=== PATIENT | male | born 1955 | race Caucasian/White ===

== ENCOUNTER 2023-12-16 03:18 | Emergency (ER) | payer MEDICARE, BC ==
[2023-12-16 03:54] LABS: BASOPHILS ABSOLUTE AUTO 0.05 K/uL (0.00-0.10); BASOPHILS PERCENT AUTO 0.7 % (0.1-1.3); EOSINOPHILS ABSOLUTE AUTO 0.13 K/uL (0.00-0.40); EOSINOPHILS PERCENT AUTO 1.8 % (0.0-5.4); HEMATOCRIT 44.8 % (38.4-49.7); HEMOGLOBIN 16.1 g/dL (12.9-16.9); IMMATURE GRAN PERCENT AUTO 0.3 % (0.0-0.7); LYMPHOCYTES ABSOLUTE AUTO 1.52 K/uL (0.8-3.3); LYMPHOCYTES PERCENT AUTO 20.6 % (11.4-47.7); MEAN CORPUSCULAR HEMOGLOBIN 33.8 pg (31.6-35.5); MEAN CORPUSCULAR HGB CONC 35.9 g/dL (31.6-35.5); MEAN CORPUSCULAR VOLUME 93.9 fL (81.4-99.0); MONOCYTES ABSOLUTE AUTO 1.05 K/uL (0.20-0.90); MONOCYTES PERCENT AUTO 14.2 % (3.3-12.6); NEUTROPHILS ABSOLUTE AUTO 4.61 K/uL (1.0-7.6); NEUTROPHILS PERCENT AUTO 62.4 % (40.0-78.1); PLATELET COUNT,PLT 184 K/uL (130-375); RED BLOOD CELL COUNT 4.77 M/uL (4.14-5.76); WHITE BLOOD CELL COUNT,WBC 7.4 K/uL (3.2-11.0)
[2023-12-16 03:55] LABS: IMMATURE GRAN ABSOLUTE AUTO 0.02 K/uL (0.00-0.23)
[2023-12-16 04:12] LABS: PROTHROMBIN TIME 10.4 sec (9.2-10.6)
[2023-12-16 04:18] LABS: ANION GAP 15.2 mmol/L (5.0-14.0); BLOOD UREA NITROGEN,BUN 21 mg/dL (7-18); CARBON DIOXIDE,CO2 26 mmol/L (21-32); CHLORIDE,CL 99 mmol/L (100-108); CREATININE 1.3 mg/dL (0.8-1.3); ESTIMATED GFR 60 mL/min (>60); GLUCOSE RANDOM 119 mg/dL (74-106); POTASSIUM,K 4.2 mmol/L (3.6-5.2); SODIUM,NA 136 mmol/L (140-148); TROPONIN I HIGH SENSITIVITY 4.4 pg/mL (<=60.3)
[2023-12-16] MEDS: valACYclovir 500 MG Tab PO ONE (04:53)
== END 2023-12-16 05:05 | disposition home or self-care (01) ==
LOC: JP.ED 03:18
DX: B02.9 Zoster without complications (principal); I10 Essential (primary) hypertension; Z90.49 Acquired absence of other specified parts of digestive tract
CPT/HCPCS: 36415; 80048; 84484; 85025; 85610; 99284; A9270; 93010; 99283

== ENCOUNTER → 2023-12-23 | Day surgery (SDC) | payer MEDICARE, BC ==
[~2023-12-23] MED LIST: Midazolam 1 MG/ML 2 ML SDV ONE; Propofol 200 MG/20 ML SDV ONE; fentaNYL 50 MCG/ML SDV ONE
[2023-12-23] MEDS: Lactated Ringers 1,000 ML IV SCH (10:47)
== END ==
LOC: JP.SDS 08:23
PROVIDERS: ATTEND Family Medicine
DX: D12.2 Benign neoplasm of ascending colon (principal); K52.9 Noninfective gastroenteritis and colitis, unspecified; K51.00 Ulcerative (chronic) pancolitis without complications; I10 Essential (primary) hypertension; Z86.010 Personal history of colon polyps
CPT/HCPCS: 00811; 45380; 45381; 45390; 74019; J2250; J2704; J3010; J7120

== ENCOUNTER → 2024-01-23 | Day surgery (SDC) | payer MEDICARE, BC ==
[2024-01-23] MEDS: Sodium Chloride 0.9% 1,000 ML IV SCH (10:07)
[2024-01-23] MEDS: FLU (Fluad Triv) TS24-25 (65UP)/MF59C/PF 45 MCG/0.5 ML Syringe IM ONE (10:08)
== END ==
LOC: JP.SDS 09:26
PROVIDERS: ATTEND Surgery
DX: D12.2 Benign neoplasm of ascending colon (principal); Z23 Encounter for immunization
CPT/HCPCS: 00811; 45390; 88305; 90653; G0008; J2250; J2704; J3010; J7030

== ENCOUNTER 2024-03-20 08:56 | Day surgery (SDC) | payer MEDICARE, BC ==
[~2024-03-20 08:56] MED LIST changes: +Dexamethasone 4 MG/ML SDV ONE; +Glycopyrrolate 0.2 MG/ML 5 ML MDV ONE; +Ketorolac 30 MG/ML SDV ONE; -Midazolam 1 MG/ML 2 ML SDV ONE; +Neostigmine Methylsulfate 10 MG/10 ML MDV ONE; +Ondansetron 4 MG/2 ML SDV ONE; +Rocuronium 50 MG/5 ML Vial ONE; +Succinylcholine 200 MG/10 ML MDV ONE; +Sugammadex Sodium 200 MG/2 ML VIAL IV ONE; +fentaNYL 250 MCG/5 ML SDV ONE; -fentaNYL 50 MCG/ML SDV ONE
[2024-03-20] MEDS: Lactated Ringers 1,000 ML IV SCH (09:55)
[2024-03-20] MEDS: metroNIDAZOLE/Normal Saline 500 MG in Premix Bag 1 BAG IV ONE (09:56)
[2024-03-20] MEDS: ceFAZolin 2 GM in Premix Bag 1 BAG IV ONE (10:50)
[2024-03-20] MEDS: Bupivacaine 0.5%/EPINEPHrine 1:200,000 50 ML MDV ONE (11:10)
[2024-03-20] MEDS ORDERED: fentaNYL 100 MCG/2 ML SDV ONE (11:19)
[2024-03-20] MEDS ORDERED: Ketorolac 30 MG/ML SDV ONE (11:27)
[2024-03-20] MEDS ORDERED: Acetaminophen/HYDROcodone 325-5 MG Tab PO PRN (12:57)
== END 2024-03-20 14:00 | disposition home or self-care (01) ==
LOC: JP.SDS 08:56
PROVIDERS: ATTEND Surgery
DX: K40.90 Unilateral inguinal hernia, without obstruction or gangrene, not specified as recurrent (principal); I10 Essential (primary) hypertension
CPT/HCPCS: 49505; C1781; J0171; J0330; J0690; J1100; J1596; J1836; J1885; J2405; J2704; J2710; J2795; J3010; J3490; J7120; 00830-QZ

== ENCOUNTER 2024-08-18 06:37 | Inpatient (IN) | payer MEDICARE, BC ==
[2024-08-18] MEDS ORDERED: Ondansetron 4 MG/2 ML SDV ONE (07:15)
[2024-08-18] MEDS ORDERED: Neostigmine Methylsulfate 10 MG/10 ML MDV ONE (07:15)
[2024-08-18] MEDS ORDERED: Rocuronium 50 MG/5 ML Vial ONE ×2 (07:15→10:00)
[2024-08-18] MEDS ORDERED: Succinylcholine 200 MG/10 ML MDV ONE (07:15)
[2024-08-18] MEDS ORDERED: Glycopyrrolate 0.2 MG/ML 5 ML MDV ONE (07:15)
[2024-08-18] MEDS ORDERED: Dexamethasone 4 MG/ML SDV ONE (07:15)
[2024-08-18] MEDS ORDERED: Propofol 200 MG/20 ML SDV ONE (07:15)
[2024-08-18] MEDS ORDERED: fentaNYL 250 MCG/5 ML SDV ONE ×2 (07:17→09:20)
[2024-08-18] MEDS: Acetaminophen 500 MG Tab PO ONE (07:51)
[2024-08-18] MEDS: Lactated Ringers 1,000 ML IV SCH (07:52)
[2024-08-18] MEDS: cefOXitin 2 GM in Sodium Chloride 0.9% 50 ML IV ONE (09:05)
[2024-08-18] MEDS: Bupivacaine 0.25%/EPINEPHrine 1:200,000 30 ML SDV ONE (10:03)
[2024-08-18] MEDS ORDERED: Labetalol 20 MG/4 ML Syringe ONE (10:15)
[2024-08-18] MEDS ORDERED: Lactated Ringers 1,000 ML ONE (10:26)
[2024-08-18] MEDS ORDERED: Ketorolac 30 MG/ML SDV ONE (11:47)
[2024-08-18] MEDS ORDERED: Metoclopramide 10 MG/2 ML SDV IV PRN (11:54)
[2024-08-18] MEDS ORDERED: Ondansetron 4 MG/2 ML SDV IV PRN (11:54)
[2024-08-18] MEDS: oxyCODONE 5 MG Tab PO PRN (13:43)
[2024-08-18] MEDS: Acetaminophen 325 MG Tab PO SCH (13:44)
[2024-08-18] MEDS: Lisinopril 20 MG Tab PO SCH (14:44)
[2024-08-19 05:49] LABS: BASOPHILS ABSOLUTE AUTO 0.03 K/uL (0.00-0.10); BASOPHILS PERCENT AUTO 0.3 % (0.1-1.3); EOSINOPHILS PERCENT AUTO 0.1 % (0.0-5.4); HEMATOCRIT 36.6 % (38.4-49.7); HEMOGLOBIN 12.9 g/dL (12.9-16.9); IMMATURE GRAN ABSOLUTE AUTO 0.03 K/uL (0.00-0.23); IMMATURE GRAN PERCENT AUTO 0.3 % (0.0-0.7); LYMPHOCYTES ABSOLUTE AUTO 0.91 K/uL (0.8-3.3); LYMPHOCYTES PERCENT AUTO 10.4 % (11.4-47.7); MEAN CORPUSCULAR HEMOGLOBIN 33.5 pg (31.6-35.5); MEAN CORPUSCULAR HGB CONC 35.2 g/dL (31.6-35.5); MEAN CORPUSCULAR VOLUME 95.1 fL (81.4-99.0); MONOCYTES ABSOLUTE AUTO 1.23 K/uL (0.20-0.90); MONOCYTES PERCENT AUTO 14.1 % (3.3-12.6); NEUTROPHILS ABSOLUTE AUTO 6.51 K/uL (1.0-7.6); NEUTROPHILS PERCENT AUTO 74.8 % (40.0-78.1); PLATELET COUNT,PLT 202 K/uL (130-375); RED BLOOD CELL COUNT 3.85 M/uL (4.14-5.76); WHITE BLOOD CELL COUNT,WBC 8.7 K/uL (3.2-11.0)
[2024-08-19] MEDS: Heparin Sodium 5,000 Units/ML Vial SUBCUT SCH (05:56)
[2024-08-19 06:01] LABS: ANION GAP 11.6 mmol/L (5.0-14.0); CREATININE 0.9 mg/dL (0.8-1.3); EST CRCL DRUG DOSING (CG) 87.42 mL/min; POTASSIUM,K 4.2 mmol/L (3.6-5.2)
[2024-08-19 06:11] LABS: EOSINOPHILS ABSOLUTE AUTO 0.01 K/uL (0.00-0.40)
[2024-08-19] MEDS: Docusate Sodium 100 MG Cap PO PRN (08:37)
[2024-08-20] MEDS ORDERED: Sodium Chloride 0.9% 10 ML Syringe IV PRN (08:17)
[2024-08-20 11:37] VITALS: BP 119/87; PULSE 71
[2024-08-20] MEDS ORDERED: Pantoprazole 40 MG Delayed-Release Granules 1 Packet PO SCH (21:00)
== END 2024-08-20 13:47 | disposition home or self-care (01) | DRG 330 ==
LOC: JP.SDSSCHI 06:37 → JP.2SS 11:55
PROVIDERS: ADMIT Surgery; ATTEND Surgery
PROC: 0DTF0ZZ Resection of Right Large Intestine, Open Approach (ICD-10-PCS; principal; 2024-08-18 08:15)
DX: D12.6 Benign neoplasm of colon, unspecified (principal); K50.10 Crohn's disease of large intestine without complications; K57.90 Diverticulosis of intestine, part unspecified, without perforation or abscess without bleeding; K21.00 Gastro-esophageal reflux disease with esophagitis, without bleeding; I10 Essential (primary) hypertension; Z90.49 Acquired absence of other specified parts of digestive tract; Z98.890 Other specified postprocedural states; Z79.899 Other long term (current) drug therapy
CPT/HCPCS: 36415; 80048; 85025; 86850; 86900; 86901; A9270-GY; C1763; J0330; J0694; J1100; J1596; J1644; J1885; J1920; J2405; J2704; J2710; J3010; J3490; J7120